=== PATIENT | female | born 1980 | race Two or more races ===

== ENCOUNTER 2016-07-26 19:42 | Emergency (ER) | payer OTHER ==
--- NOTE | 2016-07-26 20:37 | ER Document Report ---
ED Medical Screen (RME) - General Chief Complaint: Abdominal Pain Stated Complaint: ABDOMINAL PAIN/DIZZY Time Seen by Provider: 07/26/16 20:31 Mode of Arrival: Ambulatory Information source: Patient - VIA SIGNIFICANT OTHER, WHO ACTS [employer]GETABLE [employer] WORK[employer] TRAVEL OUTSIDE OF THE [place] IN LAST 30 DAYS: Yes COUNTRY TRAVELED TO/FROM: [place] per - HPI Onset: Other - 2 DAYS AGO Onset/Duration: Gradual Context: BEGAN DURING "MENSTRUAL PERIOD", SAYS SHE HAD "MISCARRIAGE" WITH SUBSEQUENT D&C 3 WEEKS AGO. Quality of pain: Cramping Severity: Moderate Associated Symptoms: Diarrhea, Nausea. denies: Chills, Dysuria, Fever, Sweating , Vomiting Exacerbated by: Denies Relieved by: Denies Similar symptoms previously: No Recently seen / treated by doctor: Yes - SEE ABOVE Past Medical History - General Information source: Patient, Relative - Medical History Medical History: Negative Renal/ Medical History: Denies: Hx Peritoneal Dialysis Past Surgical History: Reports: Hx Dilation and Curettage Review of Systems - Review of Systems Constitutional: No symptoms reported. denies: Chills, Fever EENT: No symptoms reported Cardiovascular: No symptoms reported Respiratory: No symptoms reported Gastrointestinal: See HPI Genitourinary: See HPI Female Genitourinary: See HPI Physical Exam - Vital signs Vitals: Temp Pulse Resp BP Pulse Ox 98.1 F 76 20 108/65 97 07/26/16 20:07 07/26/16 20:07 07/26/16 20:07 07/26/16 20:07 07/26/16 20:07 Interpretation: Normal. No: Tachycardic, Tachypneic, Febrile - General General appearance: Appears well, Alert In distress: None - HEENT Head: Normocephalic Eyes: Normal - Respiratory Respiratory status: No respiratory distress - Cardiovascular Rhythm: Regular - Extremities General upper extremity: Normal inspection - Neurological Neuro grossly intact: Yes - Psychological Associated symptoms: Normal affect, Normal mood - Skin Skin Temperature: Warm Skin Moisture: Dry Skin Color: Normal Skin Turgor: Elastic Course - Vital Signs Vital signs: Temp Pulse Resp BP Pulse Ox 98.1 F 76 20 108/65 97 07/26/16 20:07 07/26/16 20:07 07/26/16 20:07 07/26/16 20:07 07/26/16 20:07
[2016-07-26 21:02] LABS: ABSOLUTE EOSINOPHILS # (AUTO) 0.2 10^3/uL (0.0-0.6); ABSOLUTE LYMPHOCYTES (AUTO) 2.2 10^3/uL (0.5-4.7); ABSOLUTE MONOCYTES (AUTO) 0.8 10^3/uL (0.1-1.4); ABSOLUTE NEUT (AUTO) 1.8 10^3/uL (1.7-8.2); BASOPHILS % (AUTO) 0.4 % (0-2); EOSINOPHILS % (AUTO) 3.6 % (0-6); HEMATOCRIT 41.7 % (36.0-47.0); HEMOGLOBIN 13.9 g/dL (12.0-15.5); MEAN CORPUSCULAR HEMOGLOBIN 29.6 pg (27.0-33.4); MEAN CORPUSCULAR HGB CONC 33.4 g/dL (32.0-36.0); MEAN CORPUSCULAR VOLUME 89 fl (80-97); MONOCYTES % (AUTO) 15.9 % (3-13); RED CELL DISTRIBUTION WIDTH 13.4 % (11.5-14.0); SEGMENTED NEUTROPHILS % (AUTO) 36.1 % (42-78); WHITE BLOOD COUNT 4.9 10^3/uL (4.0-10.5)
[2016-07-26 21:07] LABS: APPEARANCE,URINE CLEAR; BILIRUBIN,URINE NEGATIVE (NEGATIVE); GLUCOSE, URINE NEGATIVE (NEGATIVE); KETONES,URINE NEGATIVE (NEGATIVE); LEUKOCYTE ESTERASE,URINE NEGATIVE (NEGATIVE); NITRITE,URINE NEGATIVE (NEGATIVE); PROTEIN,URINE NEGATIVE (NEGATIVE); URINE SPECIFIC GRAVITY 1.016; UROBILINOGEN,URINE NEGATIVE mg/dL (<2.0)
[2016-07-26 21:20] LABS: ALANINE AMINOTRANSFERASE 75 U/L (9-52); ALBUMIN 4.2 g/dL (3.5-5.0); ALKALINE PHOSPHATASE 54 U/L (38-126); ANION GAP 12 (5-19); ASPARTATE AMINO TRANSFERASE 54 U/L (14-36); BILIRUBIN,DIRECT 0.2 mg/dL (0.0-0.4); BILIRUBIN,TOTAL 0.4 mg/dL (0.2-1.3); BLOOD UREA NITROGEN 11 mg/dL (7-20); CALCIUM 9.3 mg/dL (8.4-10.2); CARBON DIOXIDE 24 mmol/L (22-30); CHLORIDE 104 mmol/L (98-107); CREATININE RESULT 0.73 mg/dL (0.52-1.25); GLUCOSE 81 mg/dL (75-110); TOTAL PROTEIN 7.8 g/dL (6.3-8.2)
[2016-07-26] MEDS ORDERED: MORPHINE SULFATE 10 MG/ML INJ IV ONE (23:44)
[2016-07-26] MEDS ORDERED: ONDANSETRON HCL INJ/PF 4 MG/2 ML SDV IV ONE (23:44)
--- NOTE | 2016-07-26 23:47 | ER Document Report ---
ED General - General Chief Complaint: Abdominal Pain Stated Complaint: ABDOMINAL PAIN/DIZZY Time Seen by Provider: 07/26/16 20:31 Mode of Arrival: Ambulatory Notes: This is a 35-year-old female who presents for abdominal pain and diarrhea. Patient's assists with the history as patient speaks [place] and he is translating. Her symptoms began yesterday with epigastric pain which has moved to the left side today. She has had diarrhea. No fevers or chills. She has had nausea but no vomiting. Of note she did have a D&C for a miscarriage done 3 weeks ago in [place]. Also the family just returned from [place] 2 days ago. TRAVEL OUTSIDE OF THE [place] IN LAST 30 DAYS: Yes COUNTRY TRAVELED TO/FROM: [place] per Past Medical History - General Information source: Patient, Relative - Social History Smoking Status: Unknown if Ever Smoked Family History: Reviewed & Not Pertinent Patient has suicidal ideation: No Patient has homicidal ideation: No - Medical History Medical History: Negative Renal/ Medical History: Denies: Hx Peritoneal Dialysis Past Surgical History: Reports: Hx Dilation and Curettage Review of Systems - Review of Systems Constitutional: denies: Chills, Fever EENT: No symptoms reported Cardiovascular: No symptoms reported Respiratory: No symptoms reported Gastrointestinal: See HPI, Abdominal pain, Diarrhea, Nausea. denies: Vomiting Genitourinary: No symptoms reported Female Genitourinary: See HPI Musculoskeletal: No symptoms reported Skin: No symptoms reported Hematologic/Lymphatic: No symptoms reported Neurological/Psychological: No symptoms reported Physical Exam - Vital signs Vitals: Temp Pulse Resp BP Pulse Ox 98.1 F 76 20 108/65 97 07/26/16 20:07 07/26/16 20:07 07/26/16 20:07 07/26/16 20:07 07/26/16 20:07 - Notes Notes: PHYSICAL EXAMINATION: GENERAL: Well-appearing, well-nourished and in no acute distress. Smiling and well-appearing HEAD: Atraumatic, normocephalic. EYES: Pupils equal round and reactive to light, extraocular movements intact, sclera anicteric, conjunctiva are normal. ENT: nares patent, oropharynx clear without exudates. Moist mucous membranes. NECK: Normal range of motion, supple without lymphadenopathy LUNGS: Breath sounds clear to auscultation bilaterally and equal. No wheezes rales or rhonchi. HEART: Regular rate and rhythm without murmurs ABDOMEN: Soft, normoactive bowel sounds. Mild LLQ TTP. No guarding, no rebound. No masses appreciated. EXTREMITIES: Normal range of motion NEUROLOGICAL: Cranial nerves grossly intact. No gross focal motor or sensory deficits appreciated. PSYCH: Normal mood, normal affect. SKIN: Warm, Dry, normal turgor, no rashes or lesions noted. Course - Re-evaluation Re-evalutation: 07/27/16 02:44 Patient did not have any diarrhea stools while she was in the ER for several hours. Her ultrasound did demonstrate a left ovarian cyst with good blood flow to the ovary. Given that she has very mild elevation of her transaminases any recent travel out of the country, a hepatitis profile and stool samples were ordered. She does have a follow-up appointment with her primary care physician on Friday. Strict return precautions were discussed. She and her are very comfortable with the plan. - Vital Signs Vital signs: Temp Pulse Resp BP Pulse Ox 98.2 F 78 18 112/80 100 07/27/16 03:55 07/27/16 03:55 07/27/16 03:55 07/27/16 03:55 07/27/16 03:55 - Laboratory Result Diagrams: 07/26/16 20:40 07/26/16 20:40 Laboratory results interpreted by me: 07/26/16 07/26/16 07/26/16 20:40 20:40 20:40 Seg Neutrophils % 36.1 L Monocytes % 15.9 H AST 54 H ALT 75 H Urine Blood MODERATE H - Diagnostic Test Radiology reviewed: Reports reviewed - 4 cm L ovarian cyst Discharge - Discharge Clinical Impression: Ovarian cyst Diarrhea Qualifiers: Diarrhea type: unspecified type Qualified Code(s): R19.7 - Diarrhea, unspecified Condition: Stable Disposition: HOME, SELF-CARE Additional Instructions: Ovarian Cyst Your examination shows the presence of an ovarian cyst. This is a ball of fluid attached to the ovary. Ovarian cysts in women of child-bearing age are usually innocent. However, the cyst may cause pain when it grows or bursts. An innocent ovarian cyst will usually go away by itself. When the cyst becomes painful, you should rest. Pain medication may be required. Some women find a hot water bottle soothing. The pain usually resolves within one or two days. After menopause, an ovarian cyst may mean a tumor, and requires more aggressive evaluation -- usually surgery is recommended to remove or biopsy the cyst. A very large cyst requires evaluation at any age. Most cysts (even the innocent ones) require follow-up examination. Call the doctor or return at any time if the pain increases significantly, if you become faint, or if you experience vaginal bleeding. Diarrhea Diarrhea means frequent, watery stools. There are many causes. Any problem that keeps the intestinal tract from absorbing water from the stool can lead to diarrhea. A sudden new diarrhea problem is usually caused by a virus, food sensitivity, toxic bacteria, or drugs. In this case, we expect the problem to go away soon. Testing is done only if you seem seriously ill from the diarrhea. If you have chronic diarrhea, or diarrhea that keeps coming back, we need to find out why. Chronic diarrhea can be due to inflammation of the bowels such as Crohn's disease or ulcerative colitis, food sensitivity such as intolerance to lactose or wheat protein, irritable bowel syndrome, and other problems. If your diarrhea is a significant problem but it's not clear why you have it, we' ll refer you to a specialist for further testing. During an episode of diarrhea, drink small amounts (two to six ounces) of clear liquids (soft drinks, sport drinks, herb teas, broth, etc). Take fluids frequently to prevent dehydration. It's usually not a problem to take mild anti- diarrhea medication such as Kaopectate or Pepto-Bismol. As the diarrhea eases, advance to small amounts of bland food (mashed potato, toast) for 24 hours. Call the physician if blood appears in your vomit or stool, if vomiting lasts longer than 24 hours, if the abdominal pain worsens or becomes localized to one area, if you develop high fever, or if you become lightheaded and weak. As instructed, keep your PCP followup on Friday as scheduled. Your hepatitis blood work will take a few days to have a result. As instructed, if diarrhea persists at home, please bring stool sample to the lab. Return to the ER for severe pain, fever >100.4, or any worsening symptoms or concerns Prescriptions: Hydrocodone/Acetaminophen [Pitts 5-325 mg Tablet] 1 tab PO Q6H PRN #6 tablet PRN Reason: For Pain Ibuprofen 600 mg PO Q8H PRN #15 tablet PRN Reason: For Pain Promethazine HCl [Phenergan 25 mg Tablet] 1 tab PO Q8H PRN #12 tablet PRN Reason:
[2016-07-27 00:51] LABS: PROTHROMBIN TIME 13.5 SEC (11.4-15.4)
[2016-07-27 00:52] LABS: PARTIAL THROMBOPLASTIN TIME 35.1 SEC (23.5-35.8)
--- NOTE | 2016-07-27 01:54 | RADIOLOGY REPORT (SQ) ---
EXAM DESCRIPTION: U/S NON OB PEL W/DOPPLER COMPLETED DATE/TIME: 07/27/2016 12:01 am REASON FOR STUDY: L. PELVIC PAIN, "MISCARRIAGE" 3 WKS AGO . Negative serum beta HCG. COMPARISON: None. TECHNIQUE: Dynamic and static grayscale images acquired of the pelvis via transabdominal and transva ginal approach and recorded on PACS. Additional selected color Doppler and spectral images recorded. LIMITATIONS: Overlying bowel gas. FINDINGS: UTERUS: Measures 8.8 x 4.6 x 5.8 cm. No focal myometrial mass was noted. ENDOMETRIAL STRIPE: Measures 3.5 mm in double wall thickness. CERVIX: Measures 2.9 cm in length and it is closed. RIGHT OVARY: The right ovary measures 1.4 x 1.8 x 3.3 cm. Flow by Doppler was shown to the right ova ry. There is a 1.1 cm dominant follicle. LEFT OVARY: The left ovary measures 3.7 x 4.7 x 3.9 cm. Flow by Doppler was shown to the left ovary. There is a 4.3 cm cyst. FREE FLUID: None noted. IMPRESSION: 4.3 cm left ovarian cyst. Otherwise, no acute findings. TECHNICAL DOCUMENTATION: JOB ID: [id number] [employer]- All Rights Reserved
[2016-07-27 03:56] VITALS: BP 112/80
== END 2016-07-27 04:00 | disposition home or self-care (01) ==
LOC: ER 19:42
DX: N83.202 Unspecified ovarian cyst, left side (principal); R19.7 Diarrhea, unspecified; R10.9 Unspecified abdominal pain; R42 Dizziness and giddiness
CPT/HCPCS: 99284; 96374; 96375; 36415; 87040; 84702; 85025; 85610; 85730; 87077; 80053; 81001; 87186; 80074; 76856; 93976; J2270; J2405